=== PATIENT | male | born 1975 | race Caucasian/White ===

== ENCOUNTER 2016-11-02 08:39 | Emergency (ER) | payer OTHER ==
[~2016-11-02] VITALS: Ht 172.7 cm; Wt 117.9 kg
[2016-11-02] MEDS ORDERED: DICYCLOMINE 20 MG/2 ML AMPUL. IM ONE (09:00)
--- NOTE | 2016-11-02 09:02 | PHYS DOC ---
Past Medical History Additional Past Medical Histor: IBS Adult General Chief Complaint Chief Complaint: CONSTIPATION HPI HPI Patient is a 41 year old male who presents with abdominal pain. Patient reports she's had these symptoms for 1 year, intermittent in nature, crampy pain that starts in his lower abdomen and radiates to his back. It is so severe yesterday he decided to come to the hospital today. He has a history of IBS, he was previously taking probiotics that he purchased [id number] from [employer] that was helping his symptoms. He ran out of the medication and his symptoms worsened. He cannot recall his primary care doctor or his GI specialist. He is not taking anything for her symptoms at this time. He denies dysuria, no fevers, no nausea or vomiting. He had a normal stool this morning, he intermittently has diarrhea or constipation. Review of Systems Review of Systems Constitutional: Denies fever or chills [] Eyes: Denies change in visual acuity, redness, or eye pain [] HENT: Denies nasal congestion or sore throat [] Respiratory: Denies cough or shortness of breath [] Cardiovascular: No additional information not addressed in HPI [] GI: Per history of present illness : Denies dysuria or hematuria [] Musculoskeletal: Denies back pain or joint pain [] Integument: Denies rash or skin lesions [] Neurologic: Denies headache, focal weakness or sensory changes [] Current Medications Current Medications Current Medications Medications (Trade) Dose Ordered Sig/Karen Start Time Stop Time Status Last Admin Dose Admin Dicyclomine HCl (Bentyl) 10 mg 1X ONCE 11/02/16 09:00 11/02/16 09:49 DC 11/02/16 09:00 10 MG Info (Do NOT chart on this entry -- for MONITORING) 1 each PRN DAILY PRN 11/02/16 10:30 11/04/16 10:29 Iohexol (Omnipaque 300 Mg/ml) 75 ml 1X ONCE 11/02/16 10:30 11/02/16 10:31 DC 11/02/16 11:02 75 ML Ketorolac Tromethamine (Toradol) 30 mg 1X ONCE 11/02/16 10:15 11/02/16 10:16 DC 11/02/16 10:19 30 MG Allergies Allergies Allergies Coded Allergies Type Severity Reaction Last Updated Verified No Known Drug Allergies 11/02/16 No Physical Exam Physical Exam Constitutional: Well developed, well nourished, no acute distress, non-toxic appearance. [] HENT: Normocephalic, atraumatic, bilateral external ears normal, oropharynx moist, no oral exudates, nose normal. [] Eyes: PERRLA, EOMI, conjunctiva normal, no discharge. [] Neck: Normal range of motion, no tenderness, supple, no stridor. [] Cardiovascular:Heart rate regular with regular rhythm, no murmur [] Lungs & Thorax: Bilateral breath sounds clear to auscultation , no wheeze or crackles Abdomen: Bowel sounds normal, soft, no appreciable focal tenderness, no guarding or peritoneal signs, neg mcburneys Skin: Warm, dry, no erythema, no rash. [] Back: No tenderness, no CVA tenderness. [] Extremities: No tenderness, no cyanosis, no clubbing, ROM intact, no edema. [] Neurologic: Alert and oriented X 3, normal motor function, normal sensory function, no focal deficits noted. [] Current Patient Data Vital Signs Vital Signs Date Time Temp Pulse Resp B/P (MAP) Pulse Ox O2 Delivery O2 Flow Rate FiO2 11/02/16 08:48 98.6 72 16 132/74 (93) 99 Room Air 98.6 Lab Values Laboratory Tests Test 11/02/16 09:15 11/02/16 09:48 White Blood Count 7.2 x10^3/uL (4.0-11.0) Red Blood Count 5.49 x10^6/uL (4.30-5.70) Hemoglobin 15.7 g/dL (13.0-17.5) Hematocrit 46.1 % (39.0-53.0) Mean Corpuscular Volume 84 fL (79-100) Mean Corpuscular Hemoglobin 29 pg (25-35) Mean Corpuscular Hemoglobin Concent 34 g/dL (31-37) Red Cell Distribution Width 13.9 % (11.5-14.5) Platelet Count 188 x10^3/uL (140-400) Neutrophils (%) (Auto) 65 % (31-73) Lymphocytes (%) (Auto) 24 % (24-48) Monocytes (%) (Auto) 7 % (0-9) Eosinophils (%) (Auto) 2 % (0-3) Basophils (%) (Auto) 1 % (0-3) Neutrophils # (Auto) 4.7 x10^3uL (1.8-7.7) Lymphocytes # (Auto) 1.8 x10^3/uL (1.0-4.8) Monocytes # (Auto) 0.5 x10^3/uL (0.0-1.1) Eosinophils # (Auto) 0.2 x10^3/uL (0.0-0.7) Basophils # (Auto) 0.1 x10^3/uL (0.0-0.2) POC Hemoglobin 15.6 g/dL (14-18) POC Hematocrit 46 % (37-52) POC Sodium 143 mmol/L (135-145) POC Potassium 4.2 mmol/L (3.5-5.0) POC Chloride 101 mmol/L (98-110) POC Total CO2 27 mmol/L (23-32) Anion Gap 20 mmol/L (6-14) H POC Blood Urea Nitrogen 15 mg/dL (8-26) POC Creatinine 1.1 mg/dL (0.5-1.4) Glucose Level 97 mg/dL (70-99) POC Ionized Calcium (Jitendra) 1.20 mmol/L (1.13-1.32) Laboratory Tests 11/02/16 09:15 Laboratory Tests 11/02/16 09:48 EKG EKG [] Radiology/Procedures Radiology/Procedures CT abd/pelvis: IMPRESSION: 1. Small left inguinal hernia containing only fat. 2. No acute abdominal or pelvic abnormality is detected. Course & Med Decision Making Course & Med Decision Making Pertinent Labs and Imaging studies reviewed. (See chart for details) Pt given IM bentyl, labs/UA/ct abd pelvis ordered. I counseled pt the need to f /u with GI doctor for maintenance of symptom control. Toradol IV given. No acute findings on ED workup. Recommend f/u with PCP and GI specialist. Dragon Disclaimer Dragon Disclaimer This electronic medical record was generated, in whole or in part, using a voice recognition dictation system. Departure Departure Impression: Primary Impression: IBS (irritable bowel syndrome) Disposition: HOME, SELF-CARE Condition: STABLE JOSE GONZALEZ MD Nov 02, 2016 09:02
[2016-11-02 09:29] LABS: BASO # 0.1 x10^3/uL (0.0-0.2); BASO % 1 % (0-3); EOS % 2 % (0-3); HEMATOCRIT 46.1 % (39.0-53.0); HEMOGLOBIN 15.7 g/dL (13.0-17.5); LYMPH # 1.8 x10^3/uL (1.0-4.8); LYMPH % 24 % (24-48); MEAN CORPUSCULAR HEMOGLOBIN 29 pg (25-35); MEAN CORPUSCULAR HGB CONC 34 g/dL (31-37); MEAN CORPUSCULAR VOLUME 84 fL (79-100); MONO % 7 % (0-9); NEUT % 65 % (31-73); PLATELET COUNT 188 x10^3/uL (140-400); RED BLOOD COUNT 5.49 x10^6/uL (4.30-5.70); RED CELL DISTRIBUTION WIDTH 13.9 % (11.5-14.5); WHITE BLOOD COUNT 7.2 x10^3/uL (4.0-11.0)
[2016-11-02] MEDS ORDERED: [UNRECOGNIZED DRUG - OTHER] (09:46)
[2016-11-02] MEDS ORDERED: PROBIOTIC (09:47)
[2016-11-02 09:55] LABS: POTASSIUM ISTAT 4.2 mmol/L (3.5-5.0)
[2016-11-02] MEDS ORDERED: KETOROLAC 30 MG/ML INJ. IV ONE (10:15)
[2016-11-02] MEDS ORDERED: IOHEXOL 300 MG/ML 75 ML VIAL IV ONE (10:30)
[2016-11-02] MEDS ORDERED: CONTRAST GIVEN MC PRN (10:30)
--- NOTE | 2016-11-02 11:49 | RAD ---
CT of the abdomen and pelvis with contrast, 11/02/2016: History: Abdominal pain and constipation Multidetector CT imaging was performed following an IV bolus injection of iodinated contrast material. No oral contrast material was administered for this study. No hepatic mass or bile duct dilatation is evident. The gallbladder is unremarkable. The pancreas shows no abnormality. The spleen is of normal size. The kidneys and adrenal glands are unremarkable. The abdominal aorta is of normal caliber. No abdominal or pelvic adenopathy is seen. There is mild dilatation of the left inguinal ring. It contains spermatic cord structures. No bowel herniation is evident. The bowel loops are not dilated. The appendix is visualized and shows no abnormality. No free air or free fluid is evident in the abdomen or pelvis. There are mild scattered degenerative changes in the spine. There is bilateral spondylolysis at L5 with a slight associated spondylolisthesis at L5-S1. IMPRESSION: 1. Small left inguinal hernia containing only fat. 2. No acute abdominal or pelvic abnormality is detected. PQRS Compliance Statement: One or more of the following individualized dose reduction techniques were utilized for this examination: 1. Automated exposure control 2. Adjustment of the mA and/or kV according to patient size 3. Use of iterative reconstruction technique
[2016-11-02 12:21] VITALS: BP 115/67
== END 2016-11-02 13:10 | disposition home or self-care (01) ==
LOC: ER 08:39
DX: K58.9 Irritable bowel syndrome, unspecified (principal)
CPT/HCPCS: 36415; 74177; 80047; 85025; 96372; 96374; 99285; J0500; J1885; Q9967